=== PATIENT | female | born 1940 | race African-American/Black ===

== ENCOUNTER 2021-09-09 14:32 | Inpatient (IN) | payer OTHER ==
[2021-09-09 17:05] LABS: BASO % 0.4 % (0-2.0); EOS % 2.2 % (0-4.5); HEMATOCRIT 47.1 % (32.4-45.2); HEMOGLOBIN 15.8 GM/dL (10.7-15.3); LYMPH % 20.4 % (8-40); MCH 29.9 pg (25.7-33.7); MCHC 33.5 g/dl (32.0-36.0); MEAN CELL VOLUME 89.3 fl (80-96); MEAN PLT VOLUME 8.3 fl (7.5-11.1); MONO % 7.9 % (3.8-10.2); NEUT % 69.1 % (42.8-82.8); PLATELET COUNT 246 10^3/uL (134-434); RBC 5.28 M/mm3 (3.60-5.2); RDW 15.3 % (11.6-15.6); WHITE BLOOD COUNT 10.9 K/mm3 (4.0-10.0)
[2021-09-09 17:25] LABS: PH,URINE 5.5 (5.0-8.0); URINE APPEARANCE CLEAR; URINE BILIRUBIN NEGATIVE (NEGATIVE); URINE COLOR YELLOW; URINE GLUCOSE (UA) NEGATIVE (NEGATIVE); URINE KETONE NEGATIVE (NEGATIVE); URINE LEUK ESTERASE NEGATIVE (NEGATIVE); URINE NITRITE NEGATIVE (NEGATIVE); URINE PROTEIN TRACE (NEGATIVE); URINE UROBILINOGEN 0.2 mg/dL (0.2-1.0)
[2021-09-09 17:26] LABS: CHLORIDE 104 mmol/L (98-107); SODIUM 138 mmol/L (136-145)
[2021-09-09 17:28] LABS: ANION GAP 4 MMOL/L (8-16); BLOOD UREA NITROGEN 17.2 mg/dL (7-18); CALCIUM 9.3 mg/dL (8.5-10.1); CO2 30 mmol/L (21-32); GLUCOSE,RANDOM 86 mg/dL (74-106)
[2021-09-09 17:32] LABS: SGOT/AST 16 U/L (15-37); SGPT/ALT 23 U/L (13-61)
[2021-09-09 17:33] LABS: BILIRUBIN,TOTAL 0.4 mg/dL (0.2-1); TOT PROT 7.8 g/dl (6.4-8.2)
[2021-09-09 17:34] LABS: ALK PHOS 93 U/L (45-117)
[2021-09-09 17:36] LABS: N-TERMINAL BNP 66.2 pg/ml (5-450)
[2021-09-09] MEDS ORDERED: ENOXAPARIN NA (PORCINE) 100 MG/1 ML DISP.SYRIN SQ ONE ×2 (19:11→21:37)
[2021-09-10 01:01] VITALS: BMI 36.6
[2021-09-10] MEDS: HYDROCHLOROTHIAZIDE 12.5 MG CAPSULE (FP) PO SCH (06:53)
[2021-09-10 08:41] LABS: HEMATOCRIT 47.9 % (32.4-45.2); HEMOGLOBIN 16.2 GM/dL (10.7-15.3); MCH 29.8 pg (25.7-33.7); MCHC 33.8 g/dl (32.0-36.0); MEAN CELL VOLUME 88.3 fl (80-96); MEAN PLT VOLUME 8.1 fl (7.5-11.1); PLATELET COUNT 206 10^3/uL (134-434); RBC 5.43 M/mm3 (3.60-5.2); RDW 15.1 % (11.6-15.6); WHITE BLOOD COUNT 7.3 K/mm3 (4.0-10.0)
[2021-09-10 08:45] LABS: INR 1.17 (0.83-1.09); PROTHROMBIN TIME (PATIENT) 13.7 SEC (9.7-13.0)
[2021-09-10 08:48] LABS: ACTIVATED PTT 35.6 SECONDS (25.2-36.5)
[2021-09-10 09:03] LABS: ALBUMIN 3.9 g/dl (3.4-5.0); BLOOD UREA NITROGEN 11.6 mg/dL (7-18); CALCIUM 9.5 mg/dL (8.5-10.1)
[2021-09-10 09:04] LABS: MAGNESIUM 2.5 mg/dL (1.8-2.4)
[2021-09-10 09:07] LABS: CREATININE 0.8 mg/dL (0.55-1.3)
[2021-09-10 09:08] LABS: BILIRUBIN,TOTAL 0.6 mg/dL (0.2-1); PHOSPHOROUS 3.2 mg/dL (2.5-4.9)
[2021-09-10 09:09] LABS: TOT PROT 7.6 g/dl (6.4-8.2)
[2021-09-10 09:10] LABS: CHOLESTEROL 208 mg/dL (50-200)
[2021-09-10 09:11] LABS: LDL CHOLESTEROL (ONLY SJRH) 111 mg/dL (5-100); TRIGLYCERIDES 135 mg/dL (0-150)
[2021-09-10 09:13] LABS: HDL CHOLESTEROL 65 mg/dL (40-60)
[2021-09-10] MEDS ORDERED: amLODIPine BESYLATE 10 MG TABLET (FP) PO SCH ×2 (10:00→22:00)
[2021-09-10] MEDS ORDERED: HYDROCHLOROTHIAZIDE 12.5 MG CAPSULE (FP) PO SCH (10:00)
[2021-09-10] MEDS ORDERED: LISINOPRIL 10 MG TABLET PO SCH (10:00)
[2021-09-10] MEDS ORDERED: ENOXAPARIN NA (PORCINE) 100 MG/1 ML DISP.SYRIN SQ SCH (10:00)
[2021-09-10] MEDS ORDERED: LISINOPRIL 5 MG TABLET PO SCH (17:51)
[2021-09-10] MEDS: LISINOPRIL 20 MG TABLET PO SCH (18:27)
[2021-09-10] MEDS: APIXABAN 5 MG TABLET PO SCH (21:56)
[2021-09-11] MEDS: HYDROCHLOROTHIAZIDE 12.5 MG CAPSULE (FP) PO SCH (06:34)
[2021-09-11 08:36] LABS: HEMOGLOBIN 15.7 GM/dL (10.7-15.3); MCH 30.3 pg (25.7-33.7); MCHC 34.1 g/dl (32.0-36.0); MEAN CELL VOLUME 88.7 fl (80-96); MEAN PLT VOLUME 8.2 fl (7.5-11.1); PLATELET COUNT 221 10^3/uL (134-434); RBC 5.19 M/mm3 (3.60-5.2); RDW 15.5 % (11.6-15.6); WHITE BLOOD COUNT 7.5 K/mm3 (4.0-10.0)
[2021-09-11 09:11] LABS: BLOOD UREA NITROGEN 16.9 mg/dL (7-18); CALCIUM 9.5 mg/dL (8.5-10.1); MAGNESIUM 2.5 mg/dL (1.8-2.4)
[2021-09-11 09:14] LABS: CREATININE 1.1 mg/dL (0.55-1.3)
[2021-09-11 09:15] LABS: PHOSPHOROUS 3.6 mg/dL (2.5-4.9)
[2021-09-11] MEDS: LISINOPRIL 20 MG TABLET PO SCH (09:30)
[2021-09-11] MEDS: APIXABAN 5 MG TABLET PO SCH (09:30)
[2021-09-11 12:04] VITALS: BP 148/72; PULSE 78; TEMP 98.2
== END 2021-09-11 17:03 | disposition home or self-care (01) | DRG 300 ==
LOC: JER 14:32 → JERBED 18:45 → J7W 09-10 00:23
PROVIDERS: ADMIT Internal Medicine; ATTEND Internal Medicine
PROC: 30233N1 Transfusion of Nonautologous Red Blood Cells into Peripheral Vein, Percutaneous Approach (ICD-10-PCS; principal; 2021-09-09)
DX: I82.403 Acute embolism and thrombosis of unspecified deep veins of lower extremity, bilateral (principal); I27.82 Chronic pulmonary embolism; R71.0 Precipitous drop in hematocrit; I10 Essential (primary) hypertension; E66.01 Morbid (severe) obesity due to excess calories; I16.0 Hypertensive urgency; D72.829 Elevated white blood cell count, unspecified; Z68.36 Body mass index [BMI] 36.0-36.9, adult; Z91.14 Patient's other noncompliance with medication regimen
CPT/HCPCS: 36415; 71046-TC-FY; 71275-TC; 80048; 80053; 80061; 80307; 81003; 82272; 82550; 83036; 83735; 83880; 84100; 84443; 84484; 85025; 85027; 85610; 85730; 93005; 93010; 93970-TC; 97116-GP; 97161-GP; 99285-25; C9803; Q9967; U0003; U0005

== ENCOUNTER 2022-11-07 14:45 | Emergency (ER) | payer OTHER ==
[2022-11-07 15:01] VITALS: BP 165/84; PULSE 72; RESP 20; TEMP 97.9; BMI 36.8
[2022-11-07 17:13] LABS: BASO % 0.5 % (0-2.0); EOS % 1.6 % (0-4.5); HEMATOCRIT 50.7 % (32.4-45.2); LYMPH % 19.2 % (8-40); MCH 30.2 pg (25.7-33.7); MCHC 33.5 g/dl (32.0-36.0); MEAN CELL VOLUME 89.9 fl (80-96); MONO % 7.9 % (3.8-10.2); NEUT % 70.8 % (42.8-82.8); PLATELET COUNT 218 10^3/uL (134-434); RBC 5.64 M/mm3 (3.60-5.2); RDW 14.6 % (11.6-15.6); WHITE BLOOD COUNT 9.1 K/mm3 (4.0-10.0)
[2022-11-07 17:21] LABS: INR 1.09 (0.83-1.09); PROTHROMBIN TIME (PATIENT) 12.5 SEC (9.7-13.0)
[2022-11-07 17:24] LABS: ACTIVATED PTT 29.4 SECONDS (25.2-36.5)
[2022-11-07 17:34] LABS: ALBUMIN 3.9 g/dl (3.4-5.0); BLOOD UREA NITROGEN 13.2 mg/dL (7-18); CALCIUM 9.6 mg/dL (8.5-10.1)
[2022-11-07 17:37] LABS: CREATININE 0.9 mg/dL (0.55-1.3)
[2022-11-07 17:39] LABS: BILIRUBIN,TOTAL 0.5 mg/dL (0.2-1); TOT PROT 7.9 g/dl (6.4-8.2)
== END 2022-11-07 18:17 | disposition home or self-care (01) ==
LOC: JER 14:45
DX: I82.403 Acute embolism and thrombosis of unspecified deep veins of lower extremity, bilateral (principal)
CPT/HCPCS: 36415; 80053; 85025; 85610; 85730; 99283-25

== ENCOUNTER 2024-04-19 22:00 | Inpatient (IN) | payer OTHER ==
[2024-04-19] MEDS ORDERED: ACETAMINOPHEN INJECTION 100 ML IVPB ONE (22:49)
[2024-04-19 23:15] LABS: BASO % 0.2 % (0-2.0); EOS % 0.6 % (0-4.5); HEMATOCRIT 41.5 % (32.4-45.2); HEMOGLOBIN 13.9 GM/dL (10.7-15.3); LYMPH % 6.5 % (8-40); MCH 29.9 pg (25.7-33.7); MCHC 33.4 g/dl (32.0-36.0); MEAN CELL VOLUME 89.3 fl (80-96); MEAN PLT VOLUME 7.2 fl (7.5-11.1); MONO % 5.7 % (3.8-10.2); PLATELET COUNT 329 10^3/uL (134-434); RBC 4.65 M/mm3 (3.60-5.2); RDW 14.4 % (11.6-15.6); WHITE BLOOD COUNT 19.6 K/mm3 (4.0-10.0)
[2024-04-19] MEDS: ACETAMINOPHEN 1000 MG/100 ML BAG IVPB ONE (23:18)
[2024-04-19 23:21] LABS: INR 1.3 (0.83-1.09); PROTHROMBIN TIME (PATIENT) 14.8 SEC (9.7-13.0)
[2024-04-19 23:23] LABS: ACTIVATED PTT 35.3 SECONDS (25.2-36.5)
[2024-04-19 23:33] LABS: POTASSIUM 4.4 mmol/L (3.5-5.1)
[2024-04-19 23:35] LABS: CALCIUM 9.6 mg/dL (8.5-10.1)
[2024-04-19 23:36] LABS: ALBUMIN 3.2 g/dl (3.4-5.0); BLOOD UREA NITROGEN 17.3 mg/dL (7-18)
[2024-04-19 23:39] LABS: CREATININE 1.1 mg/dL (0.55-1.3)
[2024-04-19 23:40] LABS: BILIRUBIN,TOTAL 0.6 mg/dL (0.2-1)
[2024-04-19 23:41] LABS: TOT PROT 7.2 g/dl (6.4-8.2)
[2024-04-19 23:45] LABS: PH,URINE 5.5 (5.0-8.0); URINE APPEARANCE CLEAR; URINE BILIRUBIN NEGATIVE (NEGATIVE); URINE COLOR YELLOW; URINE GLUCOSE (UA) NEGATIVE (NEGATIVE); URINE KETONE NEGATIVE (NEGATIVE); URINE LEUK ESTERASE NEGATIVE (NEGATIVE); URINE NITRITE NEGATIVE (NEGATIVE); URINE PROTEIN TRACE (NEGATIVE); URINE UROBILINOGEN 0.2 mg/dL (0.2-1.0)
[2024-04-19] MEDS: morphine CARPU-JECT 4 MG/1 ML DISP.SYRIN IVPUSH ONE (23:49)
[2024-04-19] MEDS ORDERED: hydrALAZINE HCL 20 MG/ML VIAL ONE (23:51)
[2024-04-20] MEDS: hydrALAZINE HCL 20 MG/ML VIAL IVPUSH ONE (00:05)
[2024-04-20] MEDS ORDERED: PIPERACILLIN/TAZOB 4.5 GM 4.5 GM/100 ML BAG IVPB ONE (00:49)
[2024-04-20] MEDS: SODIUM CHLORIDE 0.9% 500 ML INFUS.BAG IV ONE (01:10)
[2024-04-20] MEDS: PIPERACILLIN/TAZOB 4.5 GM 4.5 GM in DEXTROSE 5%-WATER 100 ML IVPB ONE (01:10)
[2024-04-20] MEDS: DEXTROSE 5%-NORMAL SALINE 1,000 ML IV SCH (01:51)
[2024-04-20] MEDS ORDERED: MORPHINE SULFATE 2 MG/ML SYRINGE ONE (02:38)
[2024-04-20] MEDS: morphine CARPU-JECT 4 MG/1 ML DISP.SYRIN IVPUSH ONE (02:47)
[2024-04-20 06:17] VITALS: BMI 34.9
[2024-04-20] MEDS: HYDROCHLOROTHIAZIDE 12.5 MG CAPSULE (FP) PO SCH (07:01)
[2024-04-20] MEDS: INSULIN ASPART SLIDING SCALE (NOVOLOG) 1 VIAL SQ SCH (07:02)
[2024-04-20 08:28] LABS: POTASSIUM 3.5 mmol/L (3.5-5.1)
[2024-04-20 08:34] LABS: HEMATOCRIT 38.2 % (32.4-45.2); HEMOGLOBIN 12.9 GM/dL (10.7-15.3); MCH 30.1 pg (25.7-33.7); MCHC 33.8 g/dl (32.0-36.0); MEAN CELL VOLUME 89.2 fl (80-96); MEAN PLT VOLUME 7.7 fl (7.5-11.1); PLATELET COUNT 281 10^3/uL (134-434); RBC 4.28 M/mm3 (3.60-5.2); RDW 14.4 % (11.6-15.6); WHITE BLOOD COUNT 17.5 K/mm3 (4.0-10.0)
[2024-04-20 08:43] LABS: ALBUMIN 2.7 g/dl (3.4-5.0); BLOOD UREA NITROGEN 12.9 mg/dL (7-18); CALCIUM 8.4 mg/dL (8.5-10.1); MAGNESIUM 1.8 mg/dL (1.8-2.4)
[2024-04-20 08:46] LABS: PHOSPHOROUS 2.6 mg/dL (2.5-4.9)
[2024-04-20 08:47] LABS: CREATININE 0.9 mg/dL (0.55-1.3)
[2024-04-20] MEDS: PIPERACILLIN/TAZOB 3.375 GM 3.375 GM in DEXTROSE 5%-WATER - 50 ML IVPB SCH (09:55)
[2024-04-20] MEDS: ACETAMINOPHEN 1000 MG/100 ML BAG IVPB PRN (12:46)
[2024-04-20] MEDS: morphine SULFATE 4 MG/ML VIAL IVPUSH PRN (20:17)
[2024-04-20] MEDS ORDERED: amLODIPine BESYLATE 5 MG TABLET (FP) PO SCH (22:00)
[2024-04-21 07:52] LABS: BASO % 0.3 % (0-2.0); EOS % 0.4 % (0-4.5); HEMATOCRIT 37.5 % (32.4-45.2); HEMOGLOBIN 12.6 GM/dL (10.7-15.3); LYMPH % 4.8 % (8-40); MCH 30.1 pg (25.7-33.7); MCHC 33.7 g/dl (32.0-36.0); MEAN CELL VOLUME 89.2 fl (80-96); MEAN PLT VOLUME 7.5 fl (7.5-11.1); MONO % 7.2 % (3.8-10.2); NEUT % 87.3 % (42.8-82.8); PLATELET COUNT 255 10^3/uL (134-434); RDW 14.2 % (11.6-15.6)
[2024-04-21 08:11] LABS: POTASSIUM 3.1 mmol/L (3.5-5.1)
[2024-04-21 08:15] LABS: BLOOD UREA NITROGEN 7.6 mg/dL (7-18); CALCIUM 7.7 mg/dL (8.5-10.1)
[2024-04-21 08:18] LABS: CREATININE 0.9 mg/dL (0.55-1.3)
[2024-04-21] MEDS: LOSARTAN POTASSIUM 50 MG TABLET PO SCH (09:54)
[2024-04-21] MEDS: HYDROCHLOROTHIAZIDE 25 MG TABLET (FP) PO SCH (09:54)
[2024-04-21] MEDS: POTASSIUM CHLORIDE ORAL LIQUID 20 MEQ/15 ML PO SCH (09:54)
[2024-04-21] MEDS ORDERED: PATIENT'S OWN MEDICATION (NON-FORMULARY) (Losartan/Hydrochlorothiazide [Hyzaar 100-25 Tabl PO SCH (10:00)
[2024-04-21] MEDS: PIPERACILLIN/TAZOB 4.5 GM 4.5 GM in DEXTROSE 5%-WATER 100 ML IVPB SCH (12:02)
[2024-04-21] MEDS: POTASSIUM CHLORIDE TABS 20 MEQ TABLET.ER (FP) PO ONE (12:35)
[2024-04-21] MEDS: ACETAMINOPHEN 325 MG TABLET (FP) PO PRN (17:51)
[2024-04-21] MEDS: PIPERACILLIN/TAZOB 3.375 GM 3.375 GM in DEXTROSE 5%-WATER - 50 ML IVPB SCH (23:53)
[2024-04-22 07:55] LABS: BASO % 0.4 % (0-2.0); HEMATOCRIT 38.1 % (32.4-45.2); HEMOGLOBIN 13.1 GM/dL (10.7-15.3); LYMPH % 8.1 % (8-40); MCH 30.8 pg (25.7-33.7); MCHC 34.4 g/dl (32.0-36.0); MEAN CELL VOLUME 89.6 fl (80-96); MEAN PLT VOLUME 7.8 fl (7.5-11.1); MONO % 8.7 % (3.8-10.2); NEUT % 81.8 % (42.8-82.8); PLATELET COUNT 264 10^3/uL (134-434); RBC 4.26 M/mm3 (3.60-5.2); RDW 14.4 % (11.6-15.6); WHITE BLOOD COUNT 17.1 K/mm3 (4.0-10.0)
[2024-04-22 08:04] LABS: POTASSIUM 4.2 mmol/L (3.5-5.1)
[2024-04-22 08:08] LABS: CALCIUM 8.4 mg/dL (8.5-10.1)
[2024-04-22 08:09] LABS: ALBUMIN 2.6 g/dl (3.4-5.0); BLOOD UREA NITROGEN 7.8 mg/dL (7-18); MAGNESIUM 1.7 mg/dL (1.8-2.4)
[2024-04-22 08:13] LABS: BILIRUBIN,TOTAL 0.9 mg/dL (0.2-1); TOT PROT 6.2 g/dl (6.4-8.2)
[2024-04-22] MEDS: MAGNESIUM OXIDE 400 MG TABLET (FP) PO ONE (09:53)
[2024-04-23 08:48] LABS: BASO % 0.3 % (0-2.0); EOS % 1.2 % (0-4.5); HEMATOCRIT 39.2 % (32.4-45.2); HEMOGLOBIN 13.1 GM/dL (10.7-15.3); LYMPH % 5.6 % (8-40); MCH 29.9 pg (25.7-33.7); MCHC 33.4 g/dl (32.0-36.0); MEAN CELL VOLUME 89.4 fl (80-96); MEAN PLT VOLUME 7.7 fl (7.5-11.1); NEUT % 84.9 % (42.8-82.8); PLATELET COUNT 256 10^3/uL (134-434); RBC 4.39 M/mm3 (3.60-5.2); RDW 14.3 % (11.6-15.6); WHITE BLOOD COUNT 18.2 K/mm3 (4.0-10.0)
[2024-04-23 10:59] LABS: POTASSIUM 3.4 mmol/L (3.5-5.1)
[2024-04-23 11:05] LABS: ALBUMIN 2.7 g/dl (3.4-5.0); CALCIUM 8.7 mg/dL (8.5-10.1)
[2024-04-23 11:06] LABS: MAGNESIUM 1.8 mg/dL (1.8-2.4)
[2024-04-23 11:09] LABS: BILIRUBIN,TOTAL 0.8 mg/dL (0.2-1); TOT PROT 6.2 g/dl (6.4-8.2)
[2024-04-23] MEDS: ENOXAPARIN NA (PORCINE) 80 MG/0.8 ML DISP.SYRIN SQ SCH (14:03)
[2024-04-24 09:18] LABS: BASO % 0.3 % (0-2.0); EOS % 1.1 % (0-4.5); HEMATOCRIT 38.6 % (32.4-45.2); HEMOGLOBIN 13.3 GM/dL (10.7-15.3); LYMPH % 5.8 % (8-40); MCH 30.5 pg (25.7-33.7); MCHC 34.6 g/dl (32.0-36.0); MONO % 10.1 % (3.8-10.2); NEUT % 82.7 % (42.8-82.8); PLATELET COUNT 247 10^3/uL (134-434); RBC 4.38 M/mm3 (3.60-5.2); RDW 14.4 % (11.6-15.6); WHITE BLOOD COUNT 16.1 K/mm3 (4.0-10.0)
[2024-04-24 09:30] LABS: POTASSIUM 3.2 mmol/L (3.5-5.1)
[2024-04-24 09:33] LABS: ALBUMIN 2.6 g/dl (3.4-5.0); BLOOD UREA NITROGEN 12.8 mg/dL (7-18); CALCIUM 8.9 mg/dL (8.5-10.1)
[2024-04-24 09:36] LABS: CREATININE 0.9 mg/dL (0.55-1.3)
[2024-04-24 09:38] LABS: BILIRUBIN,TOTAL 0.6 mg/dL (0.2-1); TOT PROT 6.3 g/dl (6.4-8.2)
[2024-04-24 10:11] LABS: INR 1.55 (0.83-1.09); PROTHROMBIN TIME (PATIENT) 17.3 SEC (9.7-13.0)
[2024-04-24] MEDS: POTASSIUM CHLORIDE ORAL LIQUID 20 MEQ/15 ML PO ONE (12:04)
[2024-04-24] MEDS: POTASSIUM CHLORIDE TABS 20 MEQ TABLET.ER (FP) PO ONE (13:03)
[2024-04-25 07:51] LABS: BASO % 0.6 % (0-2.0); EOS % 1.9 % (0-4.5); HEMOGLOBIN 12.5 GM/dL (10.7-15.3); LYMPH % 9.6 % (8-40); MCH 30.2 pg (25.7-33.7); MCHC 33.9 g/dl (32.0-36.0); MEAN CELL VOLUME 89.3 fl (80-96); MEAN PLT VOLUME 7.7 fl (7.5-11.1); MONO % 11.4 % (3.8-10.2); NEUT % 76.5 % (42.8-82.8); PLATELET COUNT 240 10^3/uL (134-434); RBC 4.14 M/mm3 (3.60-5.2); RDW 14.2 % (11.6-15.6); WHITE BLOOD COUNT 13.2 K/mm3 (4.0-10.0)
[2024-04-25 08:12] LABS: POTASSIUM 3.4 mmol/L (3.5-5.1)
[2024-04-25 08:18] LABS: ALBUMIN 2.5 g/dl (3.4-5.0); BLOOD UREA NITROGEN 14.3 mg/dL (7-18); CALCIUM 8.8 mg/dL (8.5-10.1)
[2024-04-25 08:23] LABS: BILIRUBIN,TOTAL 0.6 mg/dL (0.2-1); TOT PROT 5.9 g/dl (6.4-8.2)
[2024-04-25 08:44] LABS: INR 1.43 (0.83-1.09); PROTHROMBIN TIME (PATIENT) 16.3 SEC (9.7-13.0)
[2024-04-25] MEDS ORDERED: FENTANYL CITRATE/PF 50 MCG/ML VIAL ONE (09:33)
[2024-04-25] MEDS: MULTIVITAMINS (DAILY MVI) TABLET (FP) PO SCH (09:55)
[2024-04-25] MEDS: APIXABAN 2.5 MG TABLET PO SCH (21:07)
[2024-04-26 08:33] LABS: BASO % 0.7 % (0-2.0); EOS % 4.8 % (0-4.5); HEMATOCRIT 36.7 % (32.4-45.2); HEMOGLOBIN 12.6 GM/dL (10.7-15.3); LYMPH % 11.3 % (8-40); MCH 30.7 pg (25.7-33.7); MCHC 34.5 g/dl (32.0-36.0); MEAN CELL VOLUME 89.1 fl (80-96); MEAN PLT VOLUME 7.6 fl (7.5-11.1); MONO % 13.3 % (3.8-10.2); NEUT % 69.9 % (42.8-82.8); PLATELET COUNT 259 10^3/uL (134-434); RBC 4.12 M/mm3 (3.60-5.2); RDW 14.3 % (11.6-15.6); WHITE BLOOD COUNT 8.8 K/mm3 (4.0-10.0)
[2024-04-26 08:52] LABS: POTASSIUM 3.1 mmol/L (3.5-5.1)
[2024-04-26 09:00] LABS: CALCIUM 8.6 mg/dL (8.5-10.1)
[2024-04-26 09:01] LABS: ALBUMIN 2.4 g/dl (3.4-5.0); BLOOD UREA NITROGEN 17.7 mg/dL (7-18); MAGNESIUM 2.1 mg/dL (1.8-2.4)
[2024-04-26 09:04] LABS: CREATININE 0.9 mg/dL (0.55-1.3)
[2024-04-26 09:06] LABS: BILIRUBIN,TOTAL 0.4 mg/dL (0.2-1)
[2024-04-26] MEDS: SOD BORATE/BORIC AC/WATER/NACL (EYE WASH) 118 ML BOTTLE OU ONE (14:28)
[2024-04-27 09:22] LABS: BASO % 0.7 % (0-2.0); EOS % 6.2 % (0-4.5); HEMATOCRIT 40.3 % (32.4-45.2); HEMOGLOBIN 13.8 GM/dL (10.7-15.3); LYMPH % 14.4 % (8-40); MCHC 34.2 g/dl (32.0-36.0); MEAN CELL VOLUME 87.5 fl (80-96); MEAN PLT VOLUME 7.7 fl (7.5-11.1); MONO % 12.8 % (3.8-10.2); NEUT % 65.9 % (42.8-82.8); PLATELET COUNT 316 10^3/uL (134-434); RBC 4.61 M/mm3 (3.60-5.2); RDW 14.3 % (11.6-15.6); WHITE BLOOD COUNT 7.5 K/mm3 (4.0-10.0)
[2024-04-27 09:38] LABS: POTASSIUM 3.2 mmol/L (3.5-5.1)
[2024-04-27 09:43] LABS: CALCIUM 9.3 mg/dL (8.5-10.1)
[2024-04-27 09:44] LABS: ALBUMIN 2.8 g/dl (3.4-5.0); BLOOD UREA NITROGEN 22.5 mg/dL (7-18); MAGNESIUM 2.1 mg/dL (1.8-2.4)
[2024-04-27 09:47] LABS: BILIRUBIN,TOTAL 0.6 mg/dL (0.2-1); CREATININE 1.3 mg/dL (0.55-1.3); TOT PROT 6.7 g/dl (6.4-8.2)
[2024-04-28 09:40] LABS: BASO % 0.9 % (0-2.0); EOS % 5.9 % (0-4.5); LYMPH % 17.5 % (8-40); MCH 29.9 pg (25.7-33.7); MCHC 33.3 g/dl (32.0-36.0); MEAN CELL VOLUME 89.7 fl (80-96); MEAN PLT VOLUME 7.4 fl (7.5-11.1); MONO % 10.3 % (3.8-10.2); NEUT % 65.4 % (42.8-82.8); PLATELET COUNT 359 10^3/uL (134-434); RBC 4.68 M/mm3 (3.60-5.2); RDW 14.3 % (11.6-15.6); WHITE BLOOD COUNT 7.8 K/mm3 (4.0-10.0)
[2024-04-28 10:33] LABS: POTASSIUM 3.3 mmol/L (3.5-5.1)
[2024-04-28 10:46] LABS: ALBUMIN 2.9 g/dl (3.4-5.0); BLOOD UREA NITROGEN 23.1 mg/dL (7-18); CALCIUM 9.5 mg/dL (8.5-10.1); CREATININE 1.2 mg/dL (0.55-1.3)
[2024-04-28 10:48] LABS: BILIRUBIN,TOTAL 0.3 mg/dL (0.2-1); TOT PROT 6.9 g/dl (6.4-8.2)
[2024-04-28 16:16] VITALS: BP 145/78; PULSE 82; RESP 18; TEMP 98
== END 2024-04-28 14:51 | disposition home or self-care (01) | DRG 871 ==
LOC: JER 22:00 → JERBED 04-20 02:52 → J8W 04-20 05:20
PROVIDERS: ADMIT Internal Medicine; ATTEND Nurse Practitioner Family
PROC: 0W9G30Z Drainage of Peritoneal Cavity with Drainage Device, Percutaneous Approach (ICD-10-PCS; principal; 2024-04-25)
DX: A41.89 Other specified sepsis (principal); K35.33 Acute appendicitis with perforation, localized peritonitis, and gangrene, with abscess; I27.82 Chronic pulmonary embolism; I10 Essential (primary) hypertension; R73.03 Prediabetes; D25.9 Leiomyoma of uterus, unspecified; E66.9 Obesity, unspecified; Z68.35 Body mass index [BMI] 35.0-35.9, adult
CPT/HCPCS: 36415; 49406; 74177-TC; 80048; 80053; 81003; 82962; 83605; 83735; 84100; 85025; 85027; 85610; 85730; 86140; 86850; 86900; 86901; 87040; 87070; 87075; 87076; 87086; 87102; 87116; 87186; 87205; 87206; 87210; 93005; 93010; 93306-TC; 99285-25; J0131; Q9967

== ENCOUNTER 2024-05-02 19:32 | Emergency (ER) | payer OTHER ==
[2024-05-02 19:37] VITALS: BMI 34.9
[2024-05-02 22:04] LABS: EOS % 3.7 % (0-4.5); HEMATOCRIT 41.4 % (32.4-45.2); LYMPH % 14.5 % (8-40); MCH 29.7 pg (25.7-33.7); MCHC 33.7 g/dl (32.0-36.0); MEAN CELL VOLUME 88.1 fl (80-96); MEAN PLT VOLUME 7.1 fl (7.5-11.1); MONO % 10.3 % (3.8-10.2); NEUT % 70.5 % (42.8-82.8); PLATELET COUNT 451 10^3/uL (134-434); RDW 15.2 % (11.6-15.6); WHITE BLOOD COUNT 10.8 K/mm3 (4.0-10.0)
[2024-05-02 22:29] LABS: POTASSIUM 3.4 mmol/L (3.5-5.1)
[2024-05-02 22:31] LABS: CALCIUM 9.8 mg/dL (8.5-10.1)
[2024-05-02 22:32] LABS: BLOOD UREA NITROGEN 18.1 mg/dL (7-18)
[2024-05-02 22:35] LABS: CREATININE 1.2 mg/dL (0.55-1.3)
[2024-05-02 22:37] LABS: ALBUMIN 3.5 g/dl (3.4-5.0); BILIRUBIN,TOTAL 0.4 mg/dL (0.2-1); TOT PROT 7.5 g/dl (6.4-8.2)
[2024-05-03 02:13] VITALS: BP 137/61; PULSE 100; RESP 16; TEMP 97.8
== END 2024-05-03 03:22 | disposition home or self-care (01) ==
LOC: JER 19:32
DX: M79.89 Other specified soft tissue disorders (principal); M79.604 Pain in right leg; M79.605 Pain in left leg
CPT/HCPCS: 36415; 71275-TC; 80053; 83880; 84484; 85025; 93005; 93010; 93970-TC; 99285-25; Q9967

== ENCOUNTER 2024-12-08 12:34 | Emergency (ER) | payer OTHER ==
[2024-12-08 12:45] VITALS: TEMP 97.5; BMI 34.9
[2024-12-08 13:43] LABS: BASO % 0.3 % (0-2.0); EOS % 0.7 % (0-4.5); HEMATOCRIT 48.7 % (32.4-45.2); HEMOGLOBIN 16.4 GM/dL (10.7-15.3); LYMPH % 9.9 % (8-40); MCH 29.8 pg (25.7-33.7); MCHC 33.7 g/dl (32.0-36.0); MEAN CELL VOLUME 88.5 fl (80-96); MEAN PLT VOLUME 7.7 fl (7.5-11.1); MONO % 5.3 % (3.8-10.2); NEUT % 83.8 % (42.8-82.8); PLATELET COUNT 214 10^3/uL (134-434); RDW 15.4 % (11.6-15.6); WHITE BLOOD COUNT 11.2 K/mm3 (4.0-10.0)
[2024-12-08 14:03] LABS: POTASSIUM 3.6 mmol/L (3.5-5.1)
[2024-12-08 14:06] LABS: BLOOD UREA NITROGEN 23.3 mg/dL (7-18); CALCIUM 10.2 mg/dL (8.5-10.1)
[2024-12-08 14:10] LABS: CREATININE 1.2 mg/dL (0.55-1.3)
[2024-12-08 14:11] LABS: BILIRUBIN,TOTAL 0.5 mg/dL (0.2-1); TOT PROT 7.8 g/dl (6.4-8.2)
[2024-12-08 14:15] LABS: N-TERMINAL BNP 49.9 pg/ml (5-450)
[2024-12-08 15:01] LABS: HIV INTERPRETATION NEGATIVE (NEGATIVE)
[2024-12-08 16:57] LABS: PH,URINE 5.5 (5.0-8.0); URINE APPEARANCE CLEAR; URINE BILIRUBIN NEGATIVE (NEGATIVE); URINE COLOR YELLOW; URINE GLUCOSE (UA) NEGATIVE (NEGATIVE); URINE KETONE NEGATIVE (NEGATIVE); URINE LEUK ESTERASE NEGATIVE (NEGATIVE); URINE NITRITE NEGATIVE (NEGATIVE); URINE PROTEIN TRACE (NEGATIVE); URINE UROBILINOGEN 0.2 mg/dL (0.2-1.0)
[2024-12-08] MEDS: LABETALOL HCL 20 MG/4 ML VIAL IVPUSH ONE ×2 (18:41→20:15)
[2024-12-08] MEDS ORDERED: LABETALOL HCL 20 MG/4 ML VIAL ONE (20:12)
[2024-12-08 21:20] VITALS: BP 186/86; PULSE 76; RESP 18
== END 2024-12-08 21:20 | disposition home or self-care (01) ==
LOC: JER 12:34
PROC: 3E033GC Introduction of Other Therapeutic Substance into Peripheral Vein, Percutaneous Approach (ICD-10-PCS; principal; 2024-12-08)
DX: R10.31 Right lower quadrant pain (principal); R20.0 Anesthesia of skin
CPT/HCPCS: 36415; 71045-TC-FY; 74176-TC; 80053; 81003; 83605; 83690; 83735; 83880; 84484; 85025; 86803; 87086; 87389; 93005; 93010; 99285-25